=== PATIENT | male | born 1970 ===

== ENCOUNTER 2016-08-20 18:22 | Emergency (ER) | payer BC ==
[2016-08-20] MEDS ORDERED: Meclizine TAB* 12.5 MG PO ONE ×3 (18:48→20:59)
--- NOTE | 2016-08-20 18:54 | UC ---
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 described it as the room spinning and nuasea. - History of Current Complaint Chief Complaint: UCDizziness Stated Complaint: DIZZY Time Seen by Provider: 08/20/16 18:35 Hx Obtained From: Patient Onset/Duration: Sudden Onset, Lasting Minutes Timing: Constant Onset Severity: Severe Current Severity: Moderate Associated Signs & Symptoms: Positive: Dizziness, Nausea - Allergy/Home Medications Allergies/Adverse Reactions: Allergies Allergy/AdvReac Type Severity Reaction Status Date / Time No Known Allergies Allergy Verified 08/20/16 18:28 PMH/Surg Hx/FS Hx/Imm Hx Previously Healthy: Yes - Surgical History Surgical History: Yes Surgery Procedure, Year, and Place: left ACL reconstruction 2006 - Family History Known Family History: Negative: Cardiac Disease, Hypertension - Social History Alcohol Use: Occasionally Substance Use Type: None Smoking Status (MU): Never Smoked Tobacco Review of Systems Constitutional: Negative Skin: Negative Eyes: Negative ENT: Negative Respiratory: Negative Cardiovascular: Negative Gastrointestinal: Other - nausea Genitourinary: Negative Motor: Negative Neurovascular: Negative Musculoskeletal: Negative Neurological: Negative Psychological: Negative All Other Systems Reviewed And Are Negative: Yes Physical Exam Triage Information Reviewed: Yes Appearance: No Pain Distress, Well-Nourished, Ill-Appearing Vital Signs: Initial Vital Signs Temp 98.8 F 08/20/16 18:29 Pulse 57 08/20/16 18:29 Resp 16 08/20/16 18:29 BP 128/85 08/20/16 18:29 Pulse Ox 100 08/20/16 18:29 Vital Signs Reviewed: Yes Eye Exam: Normal Eyes: Positive: Conjunctiva Clear ENT: Positive: Pharyngeal erythema, TM bulging - left Dental Exam: Normal Neck exam: Normal Neck: Positive: Supple, Nontender, No Lymphadenopathy Respiratory Exam: Normal Respiratory: Positive: Chest non-tender, Lungs clear, Normal breath sounds Cardiovascular Exam: Normal Cardiovascular: Positive: RRR, No Murmur, Pulses Normal Abdominal Exam: Normal Abdomen Description: Positive: Nontender, No Organomegaly, Soft Bowel Sounds: Positive: Present Musculoskeletal Exam: Normal Musculoskeletal: Positive: Strength Intact, ROM Intact, No Edema Neurological Exam: Normal Neurological: Positive: Alert, Muscle Tone Normal, Other: - increased dizzyness with upright position Psychological Exam: Normal Skin Exam: Normal Course/Dx - Course Course Of Treatment: hx obtained, exam performed, meds reviewed, ekg normal, meclizine given patient began vomiting given a bag of NS due to running a marathon 3 days ago. zofran given for nausea first PO and then 4 mg IV. vomiting ended after IV zofran. then he tolerated the meclizine. patietn noting improvement, given 2nd bag of fluid and dispensed meds for the night, prescriptions sent to pharmacy. - Differential Dx - Multi-Symptom Provider Diagnoses: vertigo. nausea Discharge - Discharge Plan Condition: Stable Disposition: HOME Patient Education Materials: Vertigo (ED) Referrals: Cally Saunders MD [Primary Care Provider] - Additional Instructions: [email or web address] video on the juan carlos manuver take it easy the next few days. Use the medication as needed for nausea ans dizzyness, If symptoms do not resolve on their own. Follow up with your PCP and PT for treatment
[2016-08-20] MEDS ORDERED: Ondansetron ODT TAB* 4 MG PO ONE ×2 (19:10→20:49)
[2016-08-20] MEDS ORDERED: NS 0.9% 1000 ML* 1,000 ML IV ONE ×2 (19:24→20:20)
[2016-08-20] MEDS ORDERED: Famotidine IV* 10 MG/ML 2 ML (20 mg) IV SLOW PU ONE (19:46)
[2016-08-20] MEDS ORDERED: Ondansetron INJ* 2 MG/ML VIAL IV ONE (19:46)
[2016-08-20] MEDS ORDERED: PROCHLORPERAZINE INJ 5 MG/ML 2 ML VIAL IV ONE (20:19)
[2016-08-20] MEDS ORDERED: PROCHLORPERAZINE INJ 5 MG/ML 2 ML VIAL ONE (20:24)
[2016-08-20 20:51] VITALS: BP 131/80
== END 2016-08-20 21:35 | disposition home or self-care (01) ==
LOC: UCCORT 18:22
DX: R11.2 Nausea with vomiting, unspecified (principal); R42 Dizziness and giddiness; H73.892 Other specified disorders of tympanic membrane, left ear
CPT/HCPCS: 93005; 96361; 96374; 96375; 99203; A9270-GY; G0463; J0780; J2405